=== PATIENT | female | born 1995 | race Caucasian/White ===

== ENCOUNTER 2018-01-03 08:32 | Day surgery (SDC) | payer OTHER ==
[2018-01-03] MEDS ORDERED: LACTATED RINGER'S 1,000 ML IV (09:30)
[2018-01-03] MEDS ORDERED: CEFAZOLIN 2 GM/50 ML (PMX) 50 ML IVPB (09:30)
[2018-01-03] MEDS ORDERED: POLYMYXIN/BACITRACIN 1L IRRIG (09:59)
[2018-01-03] MEDS ORDERED: HYDROmorphONE 1 MG/5 ML IV SYRINGE IV ×3 (10:00)
[2018-01-03] MEDS ORDERED: MEPERIDINE 25 MG INJ IV (10:00)
[2018-01-03] MEDS ORDERED: ONDANSETRON 4 MG INJ IV (10:00)
[2018-01-03] MEDS ORDERED: OXYCODONE/ACETAMINOPHEN (5/325) TAB PO (10:00)
[2018-01-03] MEDS ORDERED: PROCHLORPERAZINE 10 MG INJ IV (10:00)
[2018-01-03] MEDS ORDERED: FENTAnyl 50 MCG/ML VIAL IV ×3 (10:00)
[2018-01-03] MEDS ORDERED: DIPHENHYDRAMINE 50 MG INJ IV (10:00)
[2018-01-03] MEDS ORDERED: LIDOCAINE 2% (SDV) 5 ML INJ (10:01)
[2018-01-03] MEDS ORDERED: FENTAnyl 50 MCG/ML VIAL (10:01)
[2018-01-03] MEDS ORDERED: PROPOFOL 20 ML ×4 (10:01→10:36)
[2018-01-03] MEDS ORDERED: MIDAZOLAM 1 MG/ML 2 ML INJ (10:01)
[2018-01-03] MEDS: LIDOCAINE 2% (MDV) 20 ML INJ (10:19)
[2018-01-03] MEDS: BUPIVACAINE 0.5% (SDV) 30 ML INJ (10:19)
[2018-01-03] MEDS ORDERED: DEXAMETHASONE 4 MG/ML 1 ML INJ (10:23)
[2018-01-03] MEDS ORDERED: ONDANSETRON 4 MG INJ (10:23)
[2018-01-03] MEDS ORDERED: FAMOTIDINE 20 MG INJ (10:23)
[2018-01-03] MEDS ORDERED: CEFAZOLIN 1 GM INJ (10:24)
== END 2018-01-03 12:45 | disposition home or self-care (01) ==
LOC: SDS 08:32
DX: M79.5 Residual foreign body in soft tissue (principal)
CPT/HCPCS: 28190; 73630; 84703; 88304